=== PATIENT | female | born 1980 | race Caucasian/White ===

== ENCOUNTER 2017-07-21 09:35 | Inpatient (IN) | payer MEDICAID, OTHER ==
[~2017-07-21] VITALS: Ht 162.6 cm; Wt 58.0 kg
[~2017-07-21 09:35] MED LIST: DIVA500T69 PO; FLUO20CA30 PO; RISP2TAB76 PO
[2017-07-21] MEDS ORDERED: RisperiDONE 1 MG TABLET PO ONE (10:15)
[2017-07-21 10:33] LABS: BASOPHILS # (AUTO) 0.01 K/uL (0.00-0.20); BASOPHILS % (AUTO) 0.1 % (0.0-2.0); EOSINOPHILS # (AUTO) 0.01 K/uL (0.00-0.70); EOSINOPHILS % (AUTO) 0.07 % (1.0-6.0); HEMATOCRIT 32.2 % (36-46); HEMOGLOBIN 10.5 g/dL (12.0-16.0); LYMPHOCYTES # (AUTO) 1.9 K/uL (1.0-4.8); LYMPHOCYTES % (AUTO) 22.4 % (22.0-44.0); MEAN CORPUSCULAR HEMOGLOBIN 25.9 pg (26.0-34.0); MEAN CORPUSCULAR HGB CONC 32.7 G/dL (31.0-37.0); MEAN CORPUSCULAR VOLUME 79 fL (80-100); MONOCYTES # (AUTO) 0.5 K/uL (0.1-1.0); NEUTROPHILS # (AUTO) 5.9 K/uL (1.8-7.7); NEUTROPHILS % (AUTO) 71.4 % (40.0-70.0); PLATELET COUNT (AUTO) 312 K/uL (150-450); RED BLOOD CELL COUNT(AUTO) 4.06 MIL/uL (4.00-5.20); WHITE BLOOD COUNT (AUTO) 8.3 K/uL (4.5-11.0)
[2017-07-21 10:41] LABS: ANION GAP 7 mmol/L (8-16); CALCIUM, TOTAL 8.1 mg/dL (8.8-10.5); CARBON DIOXIDE 27 mmol/L (22-29); CHLORIDE 100 mmol/L (98-107); CREATININE 0.78 mg/dL (0.60-1.30); GLOMERULAR FILTR. RATE CALC > 60 mL/min (>60); POTASSIUM 3.7 mmol/L (3.5-5.1); SODIUM SERUM 134 mmol/L (136-145); UREA NITROGEN, BLOOD 11 mg/dL (7-18)
[2017-07-21 10:47] LABS: ALANINE AMINOTRANSFERASE 31 U/L (12-78); ALBUMIN 2.8 g/dL (3.4-5.0); ASPARTATE AMINOTRANSFERASE 23 U/L (15-37); BILIRUBIN,TOTAL 0.3 mg/dL (0.1-1.0); TOTAL PROTEIN, SERUM 8.7 g/dL (6.4-8.2)
[2017-07-21] MEDS ORDERED: LORazepam 2 MG TABLET PO ONE (11:00)
[2017-07-21] MEDS ORDERED: DiphenhydrAMINE HCL 25 MG CAPSULE PO ONE (11:00)
[2017-07-21] MEDS ORDERED: ZOLPIDEM TARTRATE 10 MG TABLET PO PRN (11:30)
[2017-07-21 12:50] LABS: CHOL/HDL RATIO 2.9 (3.9-5.7)
[2017-07-21 19:00] VITALS: BP 126/84
[2017-07-21] MEDS: DIVALPROEX SODIUM 500 MG DR TABLET PO SCH (21:42)
[2017-07-21] MEDS: RisperiDONE 2 MG TABLET PO SCH (21:42)
[2017-07-22] MEDS: FLUoxetine HCL 20 MG CAPSULE PO SCH (08:14)
[2017-07-22 08:57] VITALS: BP 101/55
[2017-07-22] MEDS ORDERED: PETROLATUM,WHITE 71 GM JELLY TP PRN (10:15)
[2017-07-22] MEDS ORDERED: IBUPROFEN 600 MG TABLET PO PRN (10:15)
[2017-07-22] MEDS: SULFAMETHOX/TRIMETH DS 800-160 MG/TABLET PO SCH ×2 (10:15→22:04)
[2017-07-22] MEDS: MUPIROCIN CALCIUM 2% 15 GM CREAM TP SCH ×2 (10:15→22:04)
[2017-07-22] MEDS ORDERED: ALBUTEROL SULFATE HFA 90 MCG/PUFF 8 GM INHALER IH PRN (10:15)
[2017-07-22] MEDS ORDERED: CloNIDine HCL 0.1 MG TABLET PO PRN (10:15)
[2017-07-22] MEDS ORDERED: BACITRACIN 28.4 GM OINTMENT TP PRN (10:15)
[2017-07-22] MEDS ORDERED: MAG HYDROX/AL HYDROX/SIMETH ES 30 ML SUSPENSION UDCUP PO PRN (10:15)
[2017-07-22] MEDS ORDERED: MAGNESIUM HYDROXIDE SUSPENSION 30 ML UDCUP PO PRN (10:15)
[2017-07-22] MEDS ORDERED: ACETAMINOPHEN 325 MG TABLET PO PRN (10:15)
[2017-07-22] MEDS: LORazepam 2 MG TABLET PO PRN (12:17)
[2017-07-22] MEDS: HALOPERIDOL 5 MG TABLET PO PRN (12:17)
[2017-07-22] MEDS: CEPHALEXIN MONOHYDRATE 500 MG CAPSULE PO SCH ×3 (14:34→22:03)
[2017-07-22] MEDS: RisperiDONE 2 MG TABLET PO SCH (22:04)
[2017-07-22] MEDS: DIVALPROEX SODIUM 500 MG DR TABLET PO SCH (22:04)
[2017-07-23 06:22] LABS: THYROID STIMULATING HORMONE 1.84 uIU/mL (0.36-3.74)
[2017-07-23] MEDS: SULFAMETHOX/TRIMETH DS 800-160 MG/TABLET PO SCH (08:35)
[2017-07-23] MEDS: CEPHALEXIN MONOHYDRATE 500 MG CAPSULE PO SCH ×4 (08:35→21:31)
[2017-07-23] MEDS: FLUoxetine HCL 20 MG CAPSULE PO SCH (08:36)
[2017-07-23] MEDS: MUPIROCIN CALCIUM 2% 15 GM CREAM TP SCH (08:36)
[2017-07-23 08:58] VITALS: BP 88/48
[2017-07-23 19:05] VITALS: BP 102/80
[2017-07-23] MEDS: RisperiDONE 2 MG TABLET PO SCH (21:31)
[2017-07-23] MEDS: DIVALPROEX SODIUM 500 MG DR TABLET PO SCH (21:31)
[2017-07-24 08:00] VITALS: BP 94/57
[2017-07-24] MEDS: MULTIVITAMINS WITH MINERALS, THERAPEUTIC TABLET PO SCH (09:07)
[2017-07-24] MEDS: FLUoxetine HCL 20 MG CAPSULE PO SCH (09:07)
[2017-07-24] MEDS: SULFAMETHOX/TRIMETH DS 800-160 MG/TABLET PO SCH ×2 (09:07→16:42)
[2017-07-24] MEDS: CEPHALEXIN MONOHYDRATE 500 MG CAPSULE PO SCH ×4 (09:07→20:27)
[2017-07-24 10:53] LABS: HEPATITIS C AB SCREEN <0.1 s/co ratio (0.0-0.9)
[2017-07-24] MEDS: MUPIROCIN CALCIUM 2% 15 GM CREAM TP SCH ×2 (12:52→17:57)
[2017-07-24 17:18] VITALS: BP 101/50
[2017-07-24] MEDS: DIVALPROEX SODIUM 500 MG DR TABLET PO SCH (20:27)
[2017-07-24] MEDS: RisperiDONE 2 MG TABLET PO SCH (20:27)
[2017-07-25] MEDS: SULFAMETHOX/TRIMETH DS 800-160 MG/TABLET PO SCH ×2 (09:01→16:16)
[2017-07-25] MEDS: FLUoxetine HCL 20 MG CAPSULE PO SCH (09:01)
[2017-07-25] MEDS: MULTIVITAMINS WITH MINERALS, THERAPEUTIC TABLET PO SCH (09:01)
[2017-07-25] MEDS: HALOPERIDOL 5 MG TABLET PO PRN (09:02)
[2017-07-25] MEDS: CEPHALEXIN MONOHYDRATE 500 MG CAPSULE PO SCH ×4 (09:02→20:45)
[2017-07-25] MEDS: LORazepam 2 MG TABLET PO PRN (09:02)
[2017-07-25] MEDS: MUPIROCIN CALCIUM 2% 15 GM CREAM TP SCH ×2 (09:15→16:14)
[2017-07-25 09:30] VITALS: BP 102/60
[2017-07-25 19:12] VITALS: BP 105/62
[2017-07-25] MEDS: RisperiDONE 2 MG TABLET PO SCH (20:45)
[2017-07-25] MEDS: DIVALPROEX SODIUM 500 MG DR TABLET PO SCH (20:45)
[2017-07-26 08:05] VITALS: BP 97/62
[2017-07-26] MEDS: MULTIVITAMINS WITH MINERALS, THERAPEUTIC TABLET PO SCH (09:27)
[2017-07-26] MEDS: SULFAMETHOX/TRIMETH DS 800-160 MG/TABLET PO SCH ×2 (09:27→17:19)
[2017-07-26] MEDS: FLUoxetine HCL 20 MG CAPSULE PO SCH (09:27)
[2017-07-26] MEDS: CEPHALEXIN MONOHYDRATE 500 MG CAPSULE PO SCH ×4 (09:27→21:19)
[2017-07-26] MEDS: MUPIROCIN CALCIUM 2% 15 GM CREAM TP SCH ×2 (10:45→17:19)
[2017-07-26] MEDS: FERROUS SULFATE 325 MG EC TABLET PO SCH (17:19)
[2017-07-26 18:33] VITALS: BP 113/77
[2017-07-26] MEDS: RisperiDONE 2 MG TABLET PO SCH (21:19)
[2017-07-26] MEDS: DIVALPROEX SODIUM 500 MG DR TABLET PO SCH (21:19)
[2017-07-27] MEDS: FERROUS SULFATE 325 MG EC TABLET PO SCH ×2 (06:46→16:51)
[2017-07-27 08:00] VITALS: BP 98/60
[2017-07-27 09:23] LABS: HIV CONFIRM? YES (NP)
[2017-07-27] MEDS: MULTIVITAMINS WITH MINERALS, THERAPEUTIC TABLET PO SCH (09:51)
[2017-07-27] MEDS: CEPHALEXIN MONOHYDRATE 500 MG CAPSULE PO SCH ×4 (09:51→21:00)
[2017-07-27] MEDS: SULFAMETHOX/TRIMETH DS 800-160 MG/TABLET PO SCH ×2 (09:51→16:50)
[2017-07-27] MEDS: FLUoxetine HCL 20 MG CAPSULE PO SCH (09:51)
[2017-07-27] MEDS: RisperiDONE 2 MG TABLET PO SCH (09:52)
[2017-07-27] MEDS: MUPIROCIN CALCIUM 2% 15 GM CREAM TP SCH ×2 (09:53→16:50)
[2017-07-27 17:19] VITALS: BP 108/69
[2017-07-27] MEDS: DIVALPROEX SODIUM 500 MG DR TABLET PO SCH (21:00)
[2017-07-28] MEDS ORDERED: RISP2 PO (05:13)
[2017-07-28] MEDS ORDERED: FLUO-191 PO (05:13)
[2017-07-28] MEDS ORDERED: DIVA500T35 PO (05:14)
[2017-07-28] MEDS: FERROUS SULFATE 325 MG EC TABLET PO SCH (06:56)
[2017-07-28 08:00] VITALS: BP 109/62
[2017-07-28] MEDS ORDERED: FERR-89 PO (08:25)
[2017-07-28] MEDS ORDERED: MV-M1TAB2 PO (08:25)
[2017-07-28] MEDS ORDERED: CEPH500 PO (08:25)
[2017-07-28] MEDS ORDERED: SULF1TAB42 PEG (08:26)
[2017-07-28] MEDS ORDERED: MUPI15CR TP (08:26)
[2017-07-28] MEDS: MULTIVITAMINS WITH MINERALS, THERAPEUTIC TABLET PO SCH (08:34)
[2017-07-28] MEDS: FLUoxetine HCL 20 MG CAPSULE PO SCH (08:34)
[2017-07-28] MEDS: CEPHALEXIN MONOHYDRATE 500 MG CAPSULE PO SCH (08:34)
[2017-07-28] MEDS: SULFAMETHOX/TRIMETH DS 800-160 MG/TABLET PO SCH (08:34)
[2017-07-28] MEDS: MUPIROCIN CALCIUM 2% 15 GM CREAM TP SCH (08:35)
== END 2017-07-28 09:45 | disposition home or self-care (01) | DRG 750 ==
LOC: EMS 09:38 → AHU 12:45 → 3EI 07-23 18:40
PROVIDERS: ADMIT Psychiatry & Neurology Psychiatry; ATTEND Psychiatry & Neurology Psychiatry
DX: F20.0 Paranoid schizophrenia (principal); E44.0 Moderate protein-calorie malnutrition; R45.851 Suicidal ideations; E87.1 Hypo-osmolality and hyponatremia; Z91.14 Patient's other noncompliance with medication regimen; D50.9 Iron deficiency anemia, unspecified; F14.10 Cocaine abuse, uncomplicated; B15.9 Hepatitis A without hepatic coma; F15.129 Other stimulant abuse with intoxication, unspecified; L08.9 Local infection of the skin and subcutaneous tissue, unspecified; T63.301A Toxic effect of unspecified spider venom, accidental (unintentional), initial encounter; Z79.899 Other long term (current) drug therapy; Z59.0 Homelessness
CPT/HCPCS: 82306; 83540; 83550; 84295; 84443; 86592; 86701; 86702; 86706; 86707; 86709; 86803; 87340; 87350; 87389; 99285; G0480